=== PATIENT | male | born 1985 | race African-American/Black ===

== ENCOUNTER 2024-08-03 12:37 | Emergency (ER) | payer OTHER ==
[~2024-08-03] VITALS: Ht 180.3 cm; Wt 94.3 kg
[2024-08-03] MEDS ORDERED: ATACAND32 MG (13:19)
== END 2024-08-03 14:45 | disposition home or self-care (01) ==
LOC: ER 12:39
DX: S01.82XA Laceration with foreign body of other part of head, initial encounter (principal); W18.39XA Other fall on same level, initial encounter; Y93.89 Activity, other specified; Y92.018 Other place in single-family (private) house as the place of occurrence of the external cause

== ENCOUNTER 2024-08-09 11:58 | Emergency (ER) | payer OTHER ==
[~2024-08-09] VITALS: Ht 180.3 cm; Wt 93.4 kg
[~2024-08-09 11:58] MED LIST: ATACAND32 MG
== END 2024-08-09 15:59 | disposition home or self-care (01) ==
LOC: ER 12:00
DX: Z48.02 Encounter for removal of sutures (principal); Z88.6 Allergy status to analgesic agent